=== PATIENT | female | born 1955 | race Hispanic/Latino ===

== ENCOUNTER 2016-11-10 00:15 | Observation (INO) | payer OTHER ==
[~2016-11-10] VITALS: Ht 157.5 cm; Wt 97.2 kg
[~2016-11-10 00:15] MED LIST: ATIVAN1 MG PO; CALAN120 MG PO; CYMBALTA60 MG PO; DEPAKOTE500 MG PO; INDERAL10 MG PO; Lopressor PO; Norvasc PO; Protonix PO; Treximet 85-500 PO; Ultram PO; Zofran PO
[2016-11-10 00:55] LABS: EOSINOPHIL (%) 1.1 % (0-5); EOSINOPHIL COUNT 0.1 K/uL (0-0.3); HEMATOCRIT 39.6 % (36.0-46.0); IMMATURE GRANULOCYTE (%) 0.4 % (0.0-0.7); INSTRUMENT ABS NEUTROPHIL CT 5.8 K/uL; LYMPHOCYTE COUNT 2.1 K/uL (1.0-2.8); MCH 30.2 PG (29.0-34.0); MCHC 34.3 G/DL (30.0-36.0); MCV 87.8 FL (83-99); MEAN PLAT.VOLUME 10.2 uM^3 (9.5-12.4); MONOCYTE (%) 4.1 % (3-12); MONOCYTE COUNT 0.4 K/uL (0-0.8); NEUTROPHIL COUNT 5.8 K/uL (1.8-6.4); PLATELET COUNT 260 K/uL (156-360); RBC DIS.WIDTH-CV 12.5 % (11.8-14.6); RBC DIS.WIDTH-SD 40.1 % (39-53); RED BLOOD COUNT 4.51 M/uL (3.80-5.20); WHITE BLOOD COUNT 8.5 K/uL (4.1-10.2)
[2016-11-10 01:09] LABS: CHLORIDE 105 mEq/L (99-109); POTASSIUM 4.5 mEq/L (3.7-5.4); SODIUM 139 mEq/L (136-147)
[2016-11-10 01:12] LABS: GLUCOSE 174 mg/dL (70-99)
[2016-11-10 01:13] LABS: ANION GAP 10 MEQ/L (2-14); TOTAL BILIRUBIN 0.7 mg/dL (0.0-1.0)
[2016-11-10 01:15] LABS: ALKALINE PHOSPHATASE 75 IU/L (3-129); GFR ESTIMATE (CALCULATED) 54 mL/min/
[2016-11-10 01:16] LABS: TROP-I INTERPRETATION NEGATIVE; TROPONIN-I < 0.01 ng/mL (0.0-0.30); UREA NITROGEN (BUN) 21 mg/dL (9-23)
[2016-11-10 01:17] LABS: DIRECT BILIRUBIN 0.3 mg/dL (0.0-0.3)
[2016-11-10 01:19] LABS: LIPASE 20 U/L (1.0-51.0)
[2016-11-10 03:20] LABS: ADD MIUA? YES; BILIRUBIN NEGATIVE; BLOOD NEGATIVE; COLOR YELLOW ((YELLOW)); GLUCOSE (STRIP) NEGATIVE; KETONES 20; LEUKOCYTES SMALL; NITRITE NEGATIVE; PROTEIN (STRIP) 30; SPECIFIC GRAVITY 1.013 (1.000-1.030); UROBILINOGEN 0.2 MG/DL (0.2-1.0)
[2016-11-10 03:25] LABS: BACTERIA 1+ /HPF; EPITHELIAL CELLS RARE /HPF; HYALINE CASTS 0-5 /LPF; MUCUS TRACE /LPF; RED BLOOD CELLS 0-5 /HPF (0-5); UCUL ADDED? NO; WHITE BLOOD CELLS 0-5 /HPF (0-5)
[2016-11-10 04:51] LABS: SERUM ETHYL ALCOHOL < 10 mg/dL
[2016-11-10 05:25] LABS: HDL CHOLESTEROL 40 MG/DL (Desirable>=50); LDL CHOLESTEROL 86 mg/dL (Desirable<100); NON-HDL CHOLESTEROL 102 mg/dL (Desirable<160); TOTAL CHOLESTEROL 142 mg/dL (Desirable<200); TRIGLYCERIDES 82 MG/DL (Normal: <150)
[2016-11-10 05:42] VITALS: BP 189/91
[2016-11-10 07:49] VITALS: BP 116/62
[2016-11-10 08:21] LABS: Estimated Average Glucose 114 mg/dL (70-123); HEMOGLOBIN A1c (GLYCOHEMOGLOB) 5.6 % HGB (Below 5.7)
[2016-11-10 09:04] LABS: POINT-OF-CARE METER ID UU14174225
[2016-11-10 11:59] VITALS: BP 142/82
[2016-11-10] MEDS ORDERED: CALAN120 MG PO (12:01)
[2016-11-10] MEDS ORDERED: NEURONTIN300 MG PO ×2 (12:02→12:03)
[2016-11-10] MEDS ORDERED: GABAPENTIN300 MG PO (12:02)
[2016-11-10] MEDS ORDERED: COZAAR50 MG PO (12:03)
[2016-11-10] MEDS ORDERED: PROZAC40 MG PO (12:03)
[2016-11-10 12:22] LABS: POINT-OF-CARE METER ID UU14174225
[2016-11-10 16:13] VITALS: BP 139/66
[2016-11-10 17:48] LABS: POINT-OF-CARE METER ID UU14188625
[2016-11-10 19:44] VITALS: BP 125/60
[2016-11-10 23:03] VITALS: BP 128/63
[2016-11-11 04:00] VITALS: BP 126/69
[2016-11-11 06:17] LABS: EOSINOPHIL (%) 0 % (0-5); HEMATOCRIT 36.7 % (36.0-46.0); IMMATURE GRANULOCYTE (%) 0.5 % (0.0-0.7); IMMATURE GRANULOCYTE COUNT 0.1 K/uL; INSTRUMENT ABS NEUTROPHIL CT 7.8 K/uL; LYMPHOCYTE COUNT 2.3 K/uL (1.0-2.8); MCH 30.7 PG (29.0-34.0); MCHC 33.8 G/DL (30.0-36.0); MCV 90.8 FL (83-99); MEAN PLAT.VOLUME 11.2 uM^3 (9.5-12.4); MONOCYTE (%) 6.6 % (3-12); MONOCYTE COUNT 0.7 K/uL (0-0.8); NEUTROPHIL (%) 71.5 % (45-76); NEUTROPHIL COUNT 7.8 K/uL (1.8-6.4); PLATELET COUNT 251 K/uL (156-360); RBC DIS.WIDTH-CV 13.1 % (11.8-14.6); RBC DIS.WIDTH-SD 43.5 % (39-53); RED BLOOD COUNT 4.04 M/uL (3.80-5.20); WHITE BLOOD COUNT 10.9 K/uL (4.1-10.2)
[2016-11-11 06:46] LABS: ALKALINE PHOSPHATASE 61 IU/L (3-129); ANION GAP 9 MEQ/L (2-14); CHLORIDE 111 MEQ/L (99-109); GFR ESTIMATE (CALCULATED) 49 mL/min/; POTASSIUM 4.6 MEQ/L (3.7-5.4); SAMPLE HEMOLYSIS CHECK 0; SAMPLE ICTERIC CHECK 0; SAMPLE LIPEMIA CHECK 0; SODIUM 143 MEQ/L (136-147); TOTAL BILIRUBIN 0.6 MG/DL (0.0-1.0); UREA NITROGEN (BUN) 16 mg/dL (9-23)
[2016-11-11 06:56] LABS: GLUCOSE 99 mg/dL (70-99)
[2016-11-11 07:59] VITALS: BP 141/71
[2016-11-11] MEDS ORDERED: ATORVASTATIN CA80 MG PO (09:21)
[2016-11-11] MEDS ORDERED: ASPIR-LOW81 MG PO (09:24)
[2016-11-11] MEDS ORDERED: ZOFRAN4 MG PO (09:24)
[2016-11-11 10:23] VITALS: BP 155/76; BP 164/72; BP 170/85
== END 2016-11-11 12:15 | disposition home or self-care (01) ==
LOC: EME → EDBD 00:15 → EME 00:15 → EDOF 04:29 → 5SOUTH 04:29
PROVIDERS: Emergency Medicine; Hospitalist; Physician Assistant Medical
DX: R42 Dizziness and giddiness (principal); R11.2 Nausea with vomiting, unspecified; G43.909 Migraine, unspecified, not intractable, without status migrainosus; G40.909 Epilepsy, unspecified, not intractable, without status epilepticus; I10 Essential (primary) hypertension; E78.5 Hyperlipidemia, unspecified; Z86.73 Personal history of transient ischemic attack (TIA), and cerebral infarction without residual deficits; F41.8 Other specified anxiety disorders; I34.0 Nonrheumatic mitral (valve) insufficiency; I36.1 Nonrheumatic tricuspid (valve) insufficiency; G89.29 Other chronic pain; M54.5 Low back pain; M54.2 Cervicalgia; E66.9 Obesity, unspecified; Z68.39 Body mass index [BMI] 39.0-39.9, adult; Z83.3 Family history of diabetes mellitus; Z80.0 Family history of malignant neoplasm of digestive organs; Z79.82 Long term (current) use of aspirin
CPT/HCPCS: 70450; 70551; 80048; 80053; 80061; 80076; 80306 90; 81003; 82948; 83036; 83690; 84484; 85025; 93005; 99281; 99285; G0378; G0480; G8978 GP CH; G8979 GP CH; G8980 GP CH; J1200; J1644; J1815; J1885; J2405; J2765; J2930; J7030; S0028